=== PATIENT | female | born 1990 | race Caucasian/White ===

== ENCOUNTER → 2022-12-03 13:00 | Outpatient (CLI) | payer BC, SELFPAY ==
[2022-12-03 12:38] LABS: Basophils % 0.3 % (0.1-2.0); Eosinophils # 0.2 K/mm3 (0.0-0.4); Eosinophils % 2.2 % (0.1-12.0); Hematocrit 40.2 % (37.0-47.0); Hemoglobin 12.8 g/dL (12.2-16.2); Lymphocytes # 1.7 K/mm3 (0.7-4.5); Lymphocytes % 21.3 % (10-50); Mean Corpuscular HGB Conc 31.8 g/dL (31.8-35.4); Mean Corpuscular Hemoglobin 28.9 pg (27.0-31.2); Mean Corpuscular Volume 90.9 fl (81-99); Mean Platelet Volume 9.1 fl (7.4-10.4); Monocytes # 0.6 K/mm3 (0.1-1.0); Monocytes % 7.2 % (1.7-9.3); Neutrophils # 5.4 K/mm3 (1.8-7.8); Neutrophils % 69.1 % (37.0-80.0); Platelet Count 269 K/mm3 (142-424); Red Blood Count 4.42 M/mm3 (4.20-5.40); Red Cell Distribution Width 13.3 % (11.5-17.5); White Blood Count 7.8 K/mm3 (4.8-10.8)
[2022-12-03 12:45] LABS: Alanine Aminotransferase 22 U/L (12-78); Albumin Level 4.4 g/dl (3.5-5.0); Albumin/Globulin Ratio 1.8 (1.1-1.8); Alkaline Phosphatase 86 U/L (38-126); Anion Gap 10.4 mEq/L (5-15); Aspartate Amino Transferase 26 U/L (14-36); Bilirubin,Total 0.2 mg/dl (0.2-1.3); Blood Urea Nitrogen 15 mg/dl (7-17); Calcium 9.3 mg/dl (8.4-10.2); Carbon Dioxide 29 mmol/L (22.0-30.0); Chloride 105 mmol/L (98-107); Chol/HDL Ratio 1.9 (1-3.5); Cholesterol 121 mg/dl (140-200); Estimated Glomerular Filt Rate 96 ml/min (>60); GFR (African American) 117 ML/MIN (>60); Globulin 2.4 g/dL (1.3-3.2); Glucose 88 mg/dl (74-100); HDL Cholesterol 63 mg/dl (40-60); Potassium 4.4 mmoL/L (3.5-5.1); Sodium 140 mmol/L (136-145); Total Protein,Serum 6.8 g/dl (6.3-8.2); Triglycerides 50 mg/dl (30-150); VLDL Cholesterol 10 mg/dL (0-40)
[2022-12-03 12:52] LABS: Barbiturates Screen,Urine Negative ng/ml (<200); Benzodiazepines Screen,Urine Positive ng/ml (<200)
[2022-12-03 12:53] LABS: Amphetamine/Metha Screen,Urine Negative ng/ml (<1000)
[2022-12-03 12:54] LABS: Cannabinoid Screen,Urine Positive ng/ml (<50); Cocaine Screen,Urine Negative ng/ml (<300)
[2022-12-03 12:55] LABS: Direct LDL Cholesterol 53.94 mg/dL (100-129); Methadone Screen,Urine Negative ng/ml (<300); Opiate Screen,Urine Negative ng/ml (<300)
[2022-12-03 12:56] LABS: Phencyclidine Screen,Urine Negative ng/ml (<25)
[2022-12-03 13:01] LABS: T4 (Thyroxine) 6.8 ug/dl (5.53-11.0)
[2022-12-03 13:02] LABS: 25-OH Vitamin D, Total 38.8 ng/mL (30-100)
[2022-12-03 13:04] LABS: Hemoglobin A1C 4.9 % (4.0-6.0)
[2022-12-04 11:31] LABS: HBsAg Screen Negative (Negative); HCV Ab Non Reactive (Non Reactive); Hep A Ab, IGM Negative (Negative); Hep B Core Ab, IgM Negative (Negative)
== END ==
PROVIDERS: PCP Emergency Medicine; Visit Provider Emergency Medicine
DX: E66.3 Overweight (principal); Z79.899 Other long term (current) drug therapy; B96.29 Other Escherichia coli [E. coli] as the cause of diseases classified elsewhere
CPT/HCPCS: 80053; 80061; 80074; 80305; 82306; 83036; 84436; 84443; 85025; 87086; 87088; 87186

== ENCOUNTER → 2023-03-04 23:55 | Outpatient (CLI) | payer BC, SELFPAY ==
[2023-03-04 19:39] LABS: Amphetamine/Metha Screen,Urine Negative ng/ml (<1000)
[2023-03-04 19:40] LABS: Benzodiazepines Screen,Urine Positive ng/ml (<200)
[2023-03-04 19:41] LABS: Barbiturates Screen,Urine Negative ng/ml (<200); Cocaine Screen,Urine Negative ng/ml (<300)
[2023-03-04 19:42] LABS: Cannabinoid Screen,Urine Positive ng/ml (<50)
[2023-03-04 19:43] LABS: Methadone Screen,Urine Negative ng/ml (<300); Opiate Screen,Urine Negative ng/ml (<300)
[2023-03-04 19:49] LABS: Phencyclidine Screen,Urine Negative ng/ml (<25)
== END ==
PROVIDERS: PCP Emergency Medicine; Visit Provider Emergency Medicine
DX: F41.9 Anxiety disorder, unspecified (principal)
CPT/HCPCS: 80305

== ENCOUNTER 2023-05-31 18:49 | Outpatient (CLI) | payer BC, SELFPAY ==
[2023-05-31 21:17] LABS: Barbiturates Screen,Urine Negative ng/ml (<200)
[2023-05-31 21:18] LABS: Amphetamine/Metha Screen,Urine Negative ng/ml (<1000); Benzodiazepines Screen,Urine Positive ng/ml (<200)
[2023-05-31 21:20] LABS: Cannabinoid Screen,Urine Positive ng/ml (<50); Cocaine Screen,Urine Negative ng/ml (<300)
[2023-05-31 21:21] LABS: Methadone Screen,Urine Negative ng/ml (<300)
[2023-05-31 21:22] LABS: Opiate Screen,Urine Positive ng/ml (<300)
[2023-05-31 21:23] LABS: Phencyclidine Screen,Urine Negative ng/ml (<25)
[2023-06-07 09:41] LABS: 7-Aminoclonazepam 121
== END 2023-05-31 23:59 ==
LOC: LAB.DROPOF 18:50
PROVIDERS: PCP Internal Medicine; Visit Provider Internal Medicine
DX: Z79.899 Other long term (current) drug therapy (principal); F41.9 Anxiety disorder, unspecified
CPT/HCPCS: 80307; 80346